=== PATIENT | male | born 1960 | race African-American/Black ===

== ENCOUNTER 2021-05-30 13:42 | Emergency (ER) | payer MEDICAID ==
[~2021-05-30] VITALS: Ht 180.3 cm; Wt 82.0 kg
[~2021-05-30 13:42] MED LIST: ALBU18HF2 IH; ASPI-1497 PO; CARV25TA47 PO; CLON0.2T PO; FURO40TA5 PO; HYDR100T26 PO; INSLAN SUBCUT; LOSA100T32 PO
[2021-05-30 13:51] VITALS: BP 173/95
== END 2021-05-30 15:49 | disposition home or self-care (01) ==
LOC: ER 13:42
DX: S90.32XA Contusion of left foot, initial encounter (principal); Z48.00 Encounter for change or removal of nonsurgical wound dressing; E11.22 Type 2 diabetes mellitus with diabetic chronic kidney disease; I13.2 Hypertensive heart and chronic kidney disease with heart failure and with stage 5 chronic kidney disease, or end stage renal disease; I50.9 Heart failure, unspecified; N18.6 End stage renal disease; F12.10 Cannabis abuse, uncomplicated; Z89.422 Acquired absence of other left toe(s); Z99.2 Dependence on renal dialysis; W17.89XA Other fall from one level to another, initial encounter; Y93.89 Activity, other specified; Y92.488 Other paved roadways as the place of occurrence of the external cause
CPT/HCPCS: 73630; 99283

== ENCOUNTER 2022-05-14 12:46 | Inpatient (IN) | payer MEDICARE, MEDICAID ==
[~2022-05-14] VITALS: Ht 177.8 cm; Wt 90.7 kg
[2022-05-14 13:58] LABS: HEMATOCRIT. 23.8 % (42.0-52.0); HEMOGLOBIN. 7.7 g/dL (14.0-18.0); MEAN CORPUSCULAR VOLUME 86.7 fL (80.0-94.0); MEAN PLATELET VOLUME 10.2 fl (7.4-10.4); PLATELET 232 x1000/uL (130-400); RED BLOOD CELL COUNT 2.75 mill/uL (4.7-6.1); RED CELL DISTRIBUTION WIDTH 17.5 % (11.6-14.6)
[2022-05-14 14:07] LABS: CHLORIDE 92 mEq/L (98-107)
[2022-05-14] MEDS ORDERED: ACETAMINOPHEN 325MG TABLET PO ONE (14:45)
[2022-05-14 14:55] LABS: PLATELET ESTIMATE NORMAL
[2022-05-14] MEDS ORDERED: ACETAMINOPHEN 650MG SUPP PR ONE (15:15)
[2022-05-14] MEDS ORDERED: PIPERACILLIN/TAZ 3.375G PREMIX 50 ML IV NR (15:30)
[2022-05-14] MEDS ORDERED: ASPIRIN 300MG SUPP PR NR (15:30)
[2022-05-14] MEDS ORDERED: VANCOMYCIN 1G PREMIX 200 ML IV NR (15:30)
[2022-05-14 16:57] LABS: HEPATITIS B SURFACE ANTIGEN NEGATIVE
[2022-05-14] MEDS ORDERED: HYDRALAZINE 20MG/ML VIAL IV PRN (18:45)
[2022-05-14] MEDS ORDERED: DEXTROSE 50% WATER 50ML SYRINGE IV PRN (18:45)
[2022-05-14] MEDS ORDERED: HYDROMORPHONE HCL/PF 2MG/ML CPJ IV PRN ×2 (18:45→19:00)
[2022-05-14] MEDS ORDERED: ONDANSETRON HCL 4MG/2ML INJ IV PRN (18:45)
[2022-05-14] MEDS ORDERED: IPRATROPIUM/ALBUTEROL 0.5-3(2.5)MG/3ML NEB HHN PRN (18:45)
[2022-05-14 19:37] LABS: TOTAL IRON BINDING CAPACITY 262 ug/dL (250-450)
[2022-05-14] MEDS ORDERED: NALOXONE HCL 0.4MG/ML VIAL IV PRN (19:45)
[2022-05-14 19:50] LABS: FERRITIN 1537 ng/mL (22-322)
[2022-05-14 20:00] VITALS: BP 144/75
[2022-05-14] MEDS ORDERED: PIPERACILLIN/TAZOBACTAM 3.375 G in DEXTROSE 5% WATER 50 ML IV SCH (21:00)
[2022-05-14] MEDS ORDERED: VANCOMYCIN 750MG PMX (XELLIA) 150 ML IV NR (21:00)
[2022-05-14] MEDS: INSULIN LISPRO 100 UNITS/ML SUBCUT SCH (22:16)
[2022-05-14] MEDS: BLOOD SUGAR DIAGNOSTIC STRIP TEST SCH (22:16)
[2022-05-15] VITALS (15 sets, daily range): BP systolic 122–159; BP diastolic 59–93
[2022-05-15 01:20] LABS: CREATINE KINASE MB FRACTION 4.7 ng/mL (0.5-3.6)
[2022-05-15] MEDS ORDERED: QUET25TA36 PO (05:46)
[2022-05-15] MEDS ORDERED: LEVE500S9 PO (05:46)
[2022-05-15] MEDS ORDERED: AMOX1TAB15 MT (05:46)
[2022-05-15] MEDS ORDERED: PHEN100C12 PO ×2 (05:46→16:27)
[2022-05-15] MEDS ORDERED: METO-539 PO ×2 (05:46→16:24)
[2022-05-15] MEDS ORDERED: CLON0.2T PO (05:46)
[2022-05-15] MEDS ORDERED: SEVE800T25 PO (05:46)
[2022-05-15] MEDS ORDERED: MINO10TA PO (05:46)
[2022-05-15 06:08] LABS: CHLORIDE 94 mEq/L (98-107)
[2022-05-15 06:13] LABS: MEAN CORPUSCULAR HEMOGLOBIN 27.7 pg (28.0-32.0); MEAN CORPUSCULAR VOLUME 86.3 fL (80.0-94.0); PLATELET 191 x1000/uL (130-400); RED BLOOD CELL COUNT 2.35 mill/uL (4.7-6.1)
[2022-05-15 06:22] LABS: HDL CHOLESTEROL 64 mg/dL (40-59); LDL CHOLESTEROL 45 mg/dL (5-100)
[2022-05-15 06:41] LABS: CREATINE KINASE 358 IU/L (39-308); CREATINE KINASE MB FRACTION 4.1 ng/mL (0.5-3.6)
[2022-05-15 06:52] LABS: HEMATOCRIT. 20.2 % (42.0-52.0); HEMOGLOBIN. 6.5 g/dL (14.0-18.0)
[2022-05-15] MEDS: BLOOD SUGAR DIAGNOSTIC STRIP TEST SCH ×4 (07:30→21:00)
[2022-05-15] MEDS: INSULIN LISPRO 100 UNITS/ML SUBCUT SCH ×4 (08:00→21:44)
[2022-05-15 08:38] LABS: PLATELET ESTIMATE NORMAL
[2022-05-15] MEDS: FAMOTIDINE 20MG/2ML VIAL IV SCH (09:22)
[2022-05-15] MEDS: FUROSEMIDE 40MG/4ML VIAL IVP SCH (09:22)
[2022-05-15] MEDS ORDERED: VANCOMYCIN 1GM PMX (XELLIA) 200 ML IV SCH (10:00)
[2022-05-15 12:30] LABS: TOTAL IRON BINDING CAPACITY 190 ug/dL (250-450)
[2022-05-15] MEDS: PIPERACILLIN/TAZOBACTAM 3.375 G in DEXTROSE 5% WATER 50 ML IV SCH ×2 (13:18→21:43)
[2022-05-15 13:25] LABS: CREATINE KINASE MB FRACTION 4.5 ng/mL (0.5-3.6)
[2022-05-15] MEDS ORDERED: ASPI-1160 PO (16:22)
[2022-05-15] MEDS ORDERED: LEVE500T98 PO (16:23)
[2022-05-15] MEDS ORDERED: NIFE90TA43 PO (16:24)
[2022-05-15] MEDS ORDERED: CLOP-31 PO (16:25)
[2022-05-15] MEDS ORDERED: AMLO10TA80 PO (16:25)
[2022-05-15] MEDS ORDERED: ATOR40TA70 PO (16:29)
[2022-05-15 16:48] LABS: HEMATOCRIT 24.9 % (42.0-52.0); HEMOGLOBIN 7.9 g/dL (14.0-18.0); MEAN CORPUSCULAR VOLUME 87.8 fL (80.0-94.0); PLATELET 181 x1000/uL (130-400); RED BLOOD CELL COUNT 2.84 mill/uL (4.7-6.1); RED CELL DISTRIBUTION WIDTH 16.4 % (11.6-14.6)
[2022-05-15] MEDS ORDERED: LEVETIRACETAM 500 MG PO SCH (17:00)
[2022-05-15] MEDS ORDERED: SEVELAMER HCL 800 MG PO SCH (18:00)
[2022-05-15] MEDS: PHENYTOIN SODIUM EXTENDED 100MG CAPSULE PO SCH (18:02)
[2022-05-15] MEDS: CLONIDINE 0.2MG TABLET PO SCH (18:02)
[2022-05-15] MEDS: QUETIAPINE FUMARATE 25MG TABLET PO SCH (18:03)
[2022-05-15] MEDS: LEVETIRACETAM 500MG TABLET PO SCH (18:03)
[2022-05-15] MEDS: METOPROLOL TARTRATE 50MG TABLET PO SCH (18:03)
[2022-05-15] MEDS: SEVELAMER CARBONATE 800 MG TABLET PO SCH (18:04)
[2022-05-15] MEDS: MINOXIDIL 10MG TABLET PO SCH (18:04)
[2022-05-15] MEDS ORDERED: EPOETIN ALFA 4000UNITS/ML VIAL SUBCUT SCH (21:00)
[2022-05-15] MEDS: EPOETIN ALFA-EPBX 4,000 UNIT/ML VIAL SUBCUT SCH (21:43)
[2022-05-15] MEDS: THIAMINE HCL 100MG TABLET PO SCH (21:48)
[2022-05-16] VITALS: BP 98/51
[2022-05-16 06:02] LABS: CHLORIDE 91 mEq/L (98-107)
[2022-05-16 06:14] LABS: HEMATOCRIT. 26.5 % (42.0-52.0); HEMOGLOBIN. 8.3 g/dL (14.0-18.0); MEAN CORPUSCULAR HEMOGLOBIN 27.2 pg (28.0-32.0); MEAN PLATELET VOLUME 10.2 fl (7.4-10.4); PLATELET 266 x1000/uL (130-400); RED BLOOD CELL COUNT 3.05 mill/uL (4.7-6.1); RED CELL DISTRIBUTION WIDTH 16.6 % (11.6-14.6)
[2022-05-16 08:00] VITALS: BP 130/71
[2022-05-16] MEDS: BLOOD SUGAR DIAGNOSTIC STRIP TEST SCH ×4 (08:07→20:55)
[2022-05-16 08:30] LABS: PLATELET ESTIMATE NORMAL
[2022-05-16 08:34] LABS: T4 FREE 1.27 ng/dL (0.76-1.46)
[2022-05-16] MEDS: PHENYTOIN SODIUM EXTENDED 100MG CAPSULE PO SCH ×5 (08:39→16:35)
[2022-05-16] MEDS: FUROSEMIDE 40MG/4ML VIAL IVP SCH (08:39)
[2022-05-16] MEDS: METOPROLOL TARTRATE 50MG TABLET PO SCH ×2 (08:47→16:29)
[2022-05-16] MEDS: FAMOTIDINE 20MG/2ML VIAL IV SCH (08:47)
[2022-05-16] MEDS: LEVETIRACETAM 500MG TABLET PO SCH ×2 (08:47→16:35)
[2022-05-16] MEDS: THIAMINE HCL 100MG TABLET PO SCH (08:47)
[2022-05-16] MEDS: SEVELAMER CARBONATE 800 MG TABLET PO SCH ×3 (08:47→16:35)
[2022-05-16] MEDS: MINOXIDIL 10MG TABLET PO SCH ×2 (08:47→16:26)
[2022-05-16] MEDS: CLONIDINE 0.2MG TABLET PO SCH ×2 (08:48→16:26)
[2022-05-16] MEDS: QUETIAPINE FUMARATE 25MG TABLET PO SCH ×2 (09:09→16:35)
[2022-05-16] MEDS: PIPERACILLIN/TAZOBACTAM 3.375 G in DEXTROSE 5% WATER 50 ML IV SCH ×2 (09:09→20:55)
[2022-05-16] MEDS: INSULIN LISPRO 100 UNITS/ML SUBCUT SCH ×4 (09:17→20:55)
[2022-05-16 10:00] VITALS: BP 125/60
[2022-05-16] MEDS ORDERED: PHENYTOIN SODIUM EXTENDED 100MG CAPSULE PO NR (11:15)
[2022-05-16 12:00] VITALS: BP 138/66
[2022-05-16 16:00] VITALS: BP 106/56
[2022-05-16 20:00] VITALS: BP 97/59
[2022-05-17] VITALS: BP 111/60
[2022-05-17 04:00] VITALS: BP 97/51
[2022-05-17] MEDS: BLOOD SUGAR DIAGNOSTIC STRIP TEST SCH ×4 (06:36→20:48)
[2022-05-17] MEDS: INSULIN LISPRO 100 UNITS/ML SUBCUT SCH ×4 (06:36→20:47)
[2022-05-17 08:00] VITALS: BP 155/63
[2022-05-17] MEDS: QUETIAPINE FUMARATE 25MG TABLET PO SCH ×2 (08:15→17:31)
[2022-05-17] MEDS: THIAMINE HCL 100MG TABLET PO SCH (08:15)
[2022-05-17] MEDS: METOPROLOL TARTRATE 50MG TABLET PO SCH ×2 (08:16→17:00)
[2022-05-17] MEDS: SEVELAMER CARBONATE 800 MG TABLET PO SCH ×3 (08:16→17:31)
[2022-05-17] MEDS: PHENYTOIN SODIUM EXTENDED 100MG CAPSULE PO SCH ×3 (08:16→17:31)
[2022-05-17] MEDS: CLONIDINE 0.2MG TABLET PO SCH ×2 (08:16→17:00)
[2022-05-17] MEDS: LEVETIRACETAM 500MG TABLET PO SCH ×2 (08:16→17:31)
[2022-05-17] MEDS: MINOXIDIL 10MG TABLET PO SCH ×2 (08:16→17:00)
[2022-05-17] MEDS: FAMOTIDINE 20MG TABLET PO SCH (08:16)
[2022-05-17] MEDS: PIPERACILLIN/TAZOBACTAM 3.375 G in DEXTROSE 5% WATER 50 ML IV SCH ×2 (08:17→20:47)
[2022-05-17] MEDS: FUROSEMIDE 40MG/4ML VIAL IVP SCH (08:17)
[2022-05-17 12:00] VITALS: BP 123/58
[2022-05-17 16:00] VITALS: BP 103/55
[2022-05-17 17:00] LABS: BASOPHILS % 0.7 % (0.0-2.0); EOSINOPHILS % 1.6 % (0.0-5.0); HEMATOCRIT. 23.9 % (42.0-52.0); HEMOGLOBIN. 7.8 g/dL (14.0-18.0); LYMPHOCYTES % 7.3 % (20.0-50.0); MEAN CORPUSCULAR HEMOGLOBIN 27.9 pg (28.0-32.0); MEAN CORPUSCULAR VOLUME 85.1 fL (80.0-94.0); MEAN PLATELET VOLUME 9.6 fl (7.4-10.4); MONOCYTES % 13.5 % (2.0-8.0); NEUTROPHILS % 76.9 % (40.0-76.0); PLATELET 269 x1000/uL (130-400); RED BLOOD CELL COUNT 2.81 mill/uL (4.7-6.1); RED CELL DISTRIBUTION WIDTH 17.2 % (11.6-14.6)
[2022-05-17 17:40] LABS: CHLORIDE 94 mEq/L (98-107)
[2022-05-17 20:00] VITALS: BP 122/65
[2022-05-17] MEDS: EPOETIN ALFA-EPBX 4,000 UNIT/ML VIAL SUBCUT SCH (22:11)
[2022-05-18] VITALS: BP 103/61
[2022-05-18 04:00] VITALS: BP 115/56
[2022-05-18] MEDS: BLOOD SUGAR DIAGNOSTIC STRIP TEST SCH ×4 (06:18→21:02)
[2022-05-18] MEDS: INSULIN LISPRO 100 UNITS/ML SUBCUT SCH ×4 (06:18→21:00)
[2022-05-18 07:05] LABS: CHLORIDE 94 mEq/L (98-107)
[2022-05-18 07:07] LABS: BASOPHILS % 0.8 % (0.0-2.0); EOSINOPHILS % 1.8 % (0.0-5.0); HEMATOCRIT. 21.4 % (42.0-52.0); HEMOGLOBIN. 7.1 g/dL (14.0-18.0); LYMPHOCYTES % 7.4 % (20.0-50.0); MEAN CORPUSCULAR HEMOGLOBIN 28.4 pg (28.0-32.0); MEAN CORPUSCULAR VOLUME 85.8 fL (80.0-94.0); MEAN PLATELET VOLUME 9.8 fl (7.4-10.4); MONOCYTES % 13.1 % (2.0-8.0); NEUTROPHILS % 76.9 % (40.0-76.0); PLATELET 231 x1000/uL (130-400); RED BLOOD CELL COUNT 2.49 mill/uL (4.7-6.1); RED CELL DISTRIBUTION WIDTH 16.6 % (11.6-14.6)
[2022-05-18 08:00] VITALS: BP 156/67
[2022-05-18] MEDS: SEVELAMER CARBONATE 800 MG TABLET PO SCH ×3 (08:52→17:41)
[2022-05-18] MEDS: PIPERACILLIN/TAZOBACTAM 3.375 G in DEXTROSE 5% WATER 50 ML IV SCH ×2 (08:52→21:03)
[2022-05-18] MEDS: METOPROLOL TARTRATE 50MG TABLET PO SCH ×2 (08:54→17:42)
[2022-05-18] MEDS: LEVETIRACETAM 500MG TABLET PO SCH ×2 (08:54→17:42)
[2022-05-18] MEDS: CLONIDINE 0.2MG TABLET PO SCH ×2 (08:55→17:42)
[2022-05-18] MEDS: PHENYTOIN SODIUM EXTENDED 100MG CAPSULE PO SCH ×3 (08:55→17:41)
[2022-05-18] MEDS: MINOXIDIL 10MG TABLET PO SCH ×2 (08:55→17:41)
[2022-05-18] MEDS: FAMOTIDINE 20MG TABLET PO SCH (08:55)
[2022-05-18] MEDS: THIAMINE HCL 100MG TABLET PO SCH (08:57)
[2022-05-18] MEDS: QUETIAPINE FUMARATE 25MG TABLET PO SCH ×2 (08:57→17:49)
[2022-05-18] MEDS ORDERED: IOHEXOL-350 100 ML BOTTLE ONE (09:34)
[2022-05-18 12:00] VITALS: BP 118/52
[2022-05-18 16:00] VITALS: BP 127/61
[2022-05-18 20:00] VITALS: BP 127/70
[2022-05-19] VITALS (12 sets, daily range): BP systolic 107–129; BP diastolic 47–71
[2022-05-19] MEDS: BLOOD SUGAR DIAGNOSTIC STRIP TEST SCH ×4 (06:01→21:31)
[2022-05-19] MEDS: INSULIN LISPRO 100 UNITS/ML SUBCUT SCH ×4 (06:36→21:00)
[2022-05-19 07:03] LABS: CHLORIDE 92 mEq/L (98-107)
[2022-05-19 07:06] LABS: BASOPHILS % 0.5 % (0.0-2.0); EOSINOPHILS % 2.6 % (0.0-5.0); HEMATOCRIT. 21.5 % (42.0-52.0); HEMOGLOBIN. 7.2 g/dL (14.0-18.0); MEAN CORPUSCULAR HEMOGLOBIN 28.5 pg (28.0-32.0); MEAN CORPUSCULAR VOLUME 85.6 fL (80.0-94.0); MEAN PLATELET VOLUME 9.5 fl (7.4-10.4); MONOCYTES % 11.3 % (2.0-8.0); NEUTROPHILS % 76.6 % (40.0-76.0); PLATELET 262 x1000/uL (130-400); RED BLOOD CELL COUNT 2.52 mill/uL (4.7-6.1); RED CELL DISTRIBUTION WIDTH 17.2 % (11.6-14.6)
[2022-05-19] MEDS: METOPROLOL TARTRATE 50MG TABLET PO SCH ×2 (08:51→16:32)
[2022-05-19] MEDS: THIAMINE HCL 100MG TABLET PO SCH (08:51)
[2022-05-19] MEDS: PHENYTOIN SODIUM EXTENDED 100MG CAPSULE PO SCH ×3 (08:51→16:32)
[2022-05-19] MEDS: QUETIAPINE FUMARATE 25MG TABLET PO SCH ×2 (08:51→16:32)
[2022-05-19] MEDS: FAMOTIDINE 20MG TABLET PO SCH (08:51)
[2022-05-19] MEDS: SEVELAMER CARBONATE 800 MG TABLET PO SCH ×3 (08:51→16:32)
[2022-05-19] MEDS: LEVETIRACETAM 500MG TABLET PO SCH ×2 (08:52→16:32)
[2022-05-19] MEDS: MINOXIDIL 10MG TABLET PO SCH ×2 (08:52→16:33)
[2022-05-19] MEDS: CLONIDINE 0.2MG TABLET PO SCH ×2 (08:52→16:32)
[2022-05-19] MEDS: PIPERACILLIN/TAZOBACTAM 3.375 G in DEXTROSE 5% WATER 50 ML IV SCH (08:53)
[2022-05-19 12:06] LABS: HEMATOCRIT 22.9 % (42.0-52.0); HEMOGLOBIN 7.6 g/dL (14.0-18.0)
[2022-05-19] MEDS ORDERED: VANCOMYCIN 1GM PMX (XELLIA) 200 ML IV SCH (15:00)
[2022-05-19] MEDS: MEROPENEM 1,000 MG in SODIUM CHLORIDE 0.9% 100 ML IV SCH (18:08)
[2022-05-19] MEDS: ACETAMINOPHEN 325MG TABLET PO PRN (18:09)
[2022-05-20] VITALS: BP 110/66
[2022-05-20 04:00] VITALS: BP 115/68
[2022-05-20] MEDS: BLOOD SUGAR DIAGNOSTIC STRIP TEST SCH ×4 (06:10→21:00)
[2022-05-20] MEDS: INSULIN LISPRO 100 UNITS/ML SUBCUT SCH ×4 (06:10→21:00)
[2022-05-20 07:23] LABS: HEMATOCRIT 26.2 % (42.0-52.0); MEAN CORPUSCULAR HEMOGLOBIN 28.6 pg (28.0-32.0); MEAN CORPUSCULAR VOLUME 85.6 fL (80.0-94.0); PLATELET 280 x1000/uL (130-400); RED BLOOD CELL COUNT 3.06 mill/uL (4.7-6.1); RED CELL DISTRIBUTION WIDTH 17.4 % (11.6-14.6)
[2022-05-20] MEDS ORDERED: LIDOCAINE HCL/PF 2% 20MG/ML 5 ML/VIAL ONE (07:30)
[2022-05-20] MEDS ORDERED: IODIXANOL 320MG/ML 100 ML BOTTLE IV ONE (07:30)
[2022-05-20 07:42] LABS: HEMOGLOBIN 8.8 g/dL (14.0-18.0)
[2022-05-20] MEDS ORDERED: HEPARIN 1000 UNITS/ML 10ML ONE (08:20)
[2022-05-20] MEDS: METOPROLOL TARTRATE 50MG TABLET PO SCH ×2 (11:54→18:44)
[2022-05-20] MEDS: PHENYTOIN SODIUM EXTENDED 100MG CAPSULE PO SCH ×3 (11:54→18:44)
[2022-05-20] MEDS: LEVETIRACETAM 500MG TABLET PO SCH ×2 (11:55→18:44)
[2022-05-20] MEDS: SEVELAMER CARBONATE 800 MG TABLET PO SCH ×3 (11:55→18:43)
[2022-05-20] MEDS: FAMOTIDINE 20MG TABLET PO SCH (11:55)
[2022-05-20] MEDS: THIAMINE HCL 100MG TABLET PO SCH (11:55)
[2022-05-20] MEDS: QUETIAPINE FUMARATE 25MG TABLET PO SCH ×2 (11:56→18:43)
[2022-05-20] MEDS: CLONIDINE 0.2MG TABLET PO SCH ×2 (11:56→18:44)
[2022-05-20] MEDS: MINOXIDIL 10MG TABLET PO SCH ×2 (11:56→18:44)
[2022-05-20 12:00] VITALS: BP 148/79
[2022-05-20 16:00] VITALS: BP 134/72
[2022-05-20] MEDS: MEROPENEM 1,000 MG in SODIUM CHLORIDE 0.9% 100 ML IV SCH (18:45)
[2022-05-20 20:00] VITALS: BP 101/56
[2022-05-21] VITALS: BP 102/56
[2022-05-21] MEDS: EPOETIN ALFA-EPBX 4,000 UNIT/ML VIAL SUBCUT SCH (00:55)
[2022-05-21 04:00] VITALS: BP 124/62
[2022-05-21] MEDS: INSULIN LISPRO 100 UNITS/ML SUBCUT SCH ×4 (06:54→21:00)
[2022-05-21] MEDS: BLOOD SUGAR DIAGNOSTIC STRIP TEST SCH ×4 (06:54→21:15)
[2022-05-21 07:00] LABS: BASOPHILS % 0.7 % (0.0-2.0); EOSINOPHILS % 2.5 % (0.0-5.0); HEMATOCRIT. 27.2 % (42.0-52.0); LYMPHOCYTES % 10.1 % (20.0-50.0); MEAN CORPUSCULAR HEMOGLOBIN 28.7 pg (28.0-32.0); MEAN CORPUSCULAR VOLUME 86.4 fL (80.0-94.0); MEAN PLATELET VOLUME 9.4 fl (7.4-10.4); MONOCYTES % 14.3 % (2.0-8.0); NEUTROPHILS % 72.4 % (40.0-76.0); PLATELET 313 x1000/uL (130-400); RED BLOOD CELL COUNT 3.15 mill/uL (4.7-6.1); RED CELL DISTRIBUTION WIDTH 17.4 % (11.6-14.6)
[2022-05-21 08:00] VITALS: BP 107/52
[2022-05-21] MEDS: FAMOTIDINE 20MG TABLET PO SCH (08:31)
[2022-05-21] MEDS: THIAMINE HCL 100MG TABLET PO SCH (08:31)
[2022-05-21] MEDS: LEVETIRACETAM 500MG TABLET PO SCH ×2 (08:33→17:16)
[2022-05-21] MEDS: PHENYTOIN SODIUM EXTENDED 100MG CAPSULE PO SCH ×2 (08:33→17:16)
[2022-05-21] MEDS: SEVELAMER CARBONATE 800 MG TABLET PO SCH ×3 (08:33→17:16)
[2022-05-21] MEDS: QUETIAPINE FUMARATE 25MG TABLET PO SCH ×2 (08:33→17:16)
[2022-05-21] MEDS: MINOXIDIL 10MG TABLET PO SCH ×2 (08:34→17:00)
[2022-05-21] MEDS: CLONIDINE 0.2MG TABLET PO SCH ×2 (08:34→17:00)
[2022-05-21] MEDS: METOPROLOL TARTRATE 50MG TABLET PO SCH ×2 (08:34→17:00)
[2022-05-21 12:00] VITALS: BP 130/65
[2022-05-21 15:55] VITALS: BP 106/51
[2022-05-21] MEDS ORDERED: VANCOMYCIN 750MG PMX (XELLIA) 150 ML IV SCH (16:00)
[2022-05-21] MEDS: MEROPENEM 1,000 MG in SODIUM CHLORIDE 0.9% 100 ML IV SCH (17:16)
[2022-05-21 20:00] VITALS: BP 131/75
[2022-05-21] MEDS ORDERED: EPOETIN ALFA-EPBX 4,000 UNIT/ML VIAL SUBCUT SCH (21:00)
[2022-05-21] MEDS: ACETAMINOPHEN 325MG TABLET PO PRN (21:53)
[2022-05-22] VITALS: BP 139/71
[2022-05-22 04:00] VITALS: BP 137/65
[2022-05-22 06:42] LABS: BASOPHILS % 0.7 % (0.0-2.0); EOSINOPHILS % 3.1 % (0.0-5.0); HEMATOCRIT. 25.9 % (42.0-52.0); HEMOGLOBIN. 8.6 g/dL (14.0-18.0); LYMPHOCYTES % 9.3 % (20.0-50.0); MEAN CORPUSCULAR HEMOGLOBIN 28.7 pg (28.0-32.0); MEAN CORPUSCULAR VOLUME 86.4 fL (80.0-94.0); MEAN PLATELET VOLUME 8.9 fl (7.4-10.4); NEUTROPHILS % 72.9 % (40.0-76.0); PLATELET 284 x1000/uL (130-400); RED CELL DISTRIBUTION WIDTH 18.3 % (11.6-14.6)
[2022-05-22] MEDS: BLOOD SUGAR DIAGNOSTIC STRIP TEST SCH ×4 (07:10→20:30)
[2022-05-22] MEDS: INSULIN LISPRO 100 UNITS/ML SUBCUT SCH ×4 (07:40→20:30)
[2022-05-22 08:00] VITALS: BP 118/50
[2022-05-22 08:04] LABS: PHOSPHORUS 3.9 mg/dL (2.5-4.9)
[2022-05-22] MEDS: PHENYTOIN SODIUM EXTENDED 100MG CAPSULE PO SCH ×2 (08:25→17:35)
[2022-05-22] MEDS: FAMOTIDINE 20MG TABLET PO SCH (08:26)
[2022-05-22] MEDS: MINOXIDIL 10MG TABLET PO SCH ×2 (08:26→17:35)
[2022-05-22] MEDS: QUETIAPINE FUMARATE 25MG TABLET PO SCH ×2 (08:26→17:35)
[2022-05-22] MEDS: THIAMINE HCL 100MG TABLET PO SCH (08:26)
[2022-05-22] MEDS: LEVETIRACETAM 500MG TABLET PO SCH ×2 (08:26→17:35)
[2022-05-22] MEDS: METOPROLOL TARTRATE 50MG TABLET PO SCH ×2 (08:26→17:36)
[2022-05-22] MEDS: SEVELAMER CARBONATE 800 MG TABLET PO SCH ×3 (08:26→17:34)
[2022-05-22] MEDS: CLONIDINE 0.2MG TABLET PO SCH ×2 (08:27→17:35)
[2022-05-22 12:00] VITALS: BP 141/70
[2022-05-22] MEDS ORDERED: PHENYTOIN SODIUM 100MG/2ML VIAL IV ONE (13:00)
[2022-05-22] MEDS ORDERED: PHENYTOIN SODIUM 1000MG in SODIUM CHLORIDE 0.9% 100ML IV NR (13:00)
[2022-05-22] MEDS ORDERED: VANC1VIA IV (13:32)
[2022-05-22] MEDS ORDERED: MERO1VIA22 IV (13:32)
[2022-05-22 13:58] LABS: HEPATITIS B SURFACE ANTIGEN NEGATIVE
[2022-05-22 16:00] VITALS: BP 153/87
[2022-05-22] MEDS: MEROPENEM 1,000 MG in SODIUM CHLORIDE 0.9% 100 ML IV SCH (17:36)
[2022-05-23] VITALS: BP 102/52
[2022-05-23 04:00] VITALS: BP 115/65
[2022-05-23 06:48] LABS: HEMATOCRIT. 26.2 % (42.0-52.0); HEMOGLOBIN. 8.8 g/dL (14.0-18.0); MEAN CORPUSCULAR HEMOGLOBIN 29.6 pg (28.0-32.0); MEAN CORPUSCULAR VOLUME 87.6 fL (80.0-94.0); MEAN PLATELET VOLUME 8.8 fl (7.4-10.4); PLATELET 284 x1000/uL (130-400); RED BLOOD CELL COUNT 2.98 mill/uL (4.7-6.1); RED CELL DISTRIBUTION WIDTH 18.7 % (11.6-14.6)
[2022-05-23] MEDS: BLOOD SUGAR DIAGNOSTIC STRIP TEST SCH ×3 (07:38→17:10)
[2022-05-23] MEDS: INSULIN LISPRO 100 UNITS/ML SUBCUT SCH ×3 (07:40→17:10)
[2022-05-23 08:00] VITALS: BP 133/79
[2022-05-23 08:22] LABS: PHOSPHORUS 4.1 mg/dL (2.5-4.9)
[2022-05-23] MEDS: SEVELAMER CARBONATE 800 MG TABLET PO SCH ×3 (08:39→16:50)
[2022-05-23] MEDS: PHENYTOIN SODIUM EXTENDED 100MG CAPSULE PO SCH ×2 (08:39→16:49)
[2022-05-23] MEDS: QUETIAPINE FUMARATE 25MG TABLET PO SCH ×2 (08:39→16:50)
[2022-05-23] MEDS: METOPROLOL TARTRATE 50MG TABLET PO SCH ×2 (08:39→16:49)
[2022-05-23] MEDS: FAMOTIDINE 20MG TABLET PO SCH (08:39)
[2022-05-23] MEDS: MINOXIDIL 10MG TABLET PO SCH ×2 (08:40→16:49)
[2022-05-23] MEDS: CLONIDINE 0.2MG TABLET PO SCH ×2 (08:40→16:50)
[2022-05-23] MEDS: THIAMINE HCL 100MG TABLET PO SCH (08:40)
[2022-05-23] MEDS: LEVETIRACETAM 500MG TABLET PO SCH ×2 (08:40→16:49)
[2022-05-23 10:25] LABS: PLATELET ESTIMATE NORMAL
[2022-05-23 12:02] VITALS: BP 122/79
[2022-05-23 15:58] VITALS: BP 133/73
[2022-05-23 16:57] VITALS: BP 133/73
== END 2022-05-23 17:50 | disposition home health service (06) | DRG 853 ==
LOC: ER 12:46 → EDBEDREQSVC 15:26 → MICUSO 17:33 → EDBEDREQTM 17:42 → EDBEDREQ 17:42 → EDBEDREQTM 21:13 → 5EST 05-15 01:33 → 8WST 05-16 13:55
PROVIDERS: ADMIT Hospitalist; ATTEND Hospitalist
PROC: 5A1D70Z Performance of Urinary Filtration, Intermittent, Less than 6 Hours Per Day (ICD-10-PCS; 2022-05-14)
PROC: 30233N1 Transfusion of Nonautologous Red Blood Cells into Peripheral Vein, Percutaneous Approach (ICD-10-PCS; principal; 2022-05-15)
PROC: 5A1D70Z Performance of Urinary Filtration, Intermittent, Less than 6 Hours Per Day (ICD-10-PCS; 2022-05-15)
PROC: 5A1D70Z Performance of Urinary Filtration, Intermittent, Less than 6 Hours Per Day (ICD-10-PCS; 2022-05-17)
PROC: 5A1D70Z Performance of Urinary Filtration, Intermittent, Less than 6 Hours Per Day (ICD-10-PCS; 2022-05-19)
PROC: 047S3ZZ Dilation of Left Posterior Tibial Artery, Percutaneous Approach (ICD-10-PCS; 2022-05-20)
PROC: B41G1ZZ Fluoroscopy of Left Lower Extremity Arteries using Low Osmolar Contrast (ICD-10-PCS; 2022-05-20)
PROC: B41F1ZZ Fluoroscopy of Right Lower Extremity Arteries using Low Osmolar Contrast (ICD-10-PCS; 2022-05-20)
PROC: 4A00X4Z Measurement of Central Nervous Electrical Activity, External Approach (ICD-10-PCS; 2022-05-20)
DX: A41.9 Sepsis, unspecified organism (principal); G93.41 Metabolic encephalopathy; I21.4 Non-ST elevation (NSTEMI) myocardial infarction; N18.6 End stage renal disease; I50.33 Acute on chronic diastolic (congestive) heart failure; I21.A1 Myocardial infarction type 2; E87.1 Hypo-osmolality and hyponatremia; E11.52 Type 2 diabetes mellitus with diabetic peripheral angiopathy with gangrene; I13.2 Hypertensive heart and chronic kidney disease with heart failure and with stage 5 chronic kidney disease, or end stage renal disease; I96 Gangrene, not elsewhere classified; D63.8 Anemia in other chronic diseases classified elsewhere; Z20.822 Contact with and (suspected) exposure to COVID-19; E87.5 Hyperkalemia; E11.22 Type 2 diabetes mellitus with diabetic chronic kidney disease; G40.909 Epilepsy, unspecified, not intractable, without status epilepticus; L97.519 Non-pressure chronic ulcer of other part of right foot with unspecified severity; E11.51 Type 2 diabetes mellitus with diabetic peripheral angiopathy without gangrene; E11.621 Type 2 diabetes mellitus with foot ulcer; L97.529 Non-pressure chronic ulcer of other part of left foot with unspecified severity; Z79.4 Long term (current) use of insulin; Z79.899 Other long term (current) drug therapy; Z99.2 Dependence on renal dialysis; Z86.73 Personal history of transient ischemic attack (TIA), and cerebral infarction without residual deficits; Z91.15 Patient's noncompliance with renal dialysis
CPT/HCPCS: 36415; 37228; 70551; 71045; 73630; 73718; 75635; 75710; 80048; 80053; 80061; 80185; 80202; 82140; 82542; 82550; 82553; 82607; 82728; 82746; 82962; 83036; 83540; 83550; 83605; 83735; 83880; 84100; 84145; 84439; 84443; 84481; 84484; 85014; 85018; 85025; 85027; 85379; 85651; 86705; 86709; 86803; 86850; 86900; 86920; 87340; 87426; 93005; 93923; 93970; 99291; C1725; C1760; C1769; C1893; C1894; C9803; J0885; J1165; J1170; J1644; J1815; J1940; J2185; J2543; J3370; J3490; J7050; J7060; P9016; Q9967

== ENCOUNTER 2023-01-07 17:01 | Inpatient (IN) | payer MEDICARE, MEDICAID ==
[~2023-01-07] VITALS: Ht 177.8 cm; Wt 83.5 kg
[2023-01-07] VITALS (8 sets, daily range): BP systolic 91–132; BP diastolic 69–81
[~2023-01-07 17:01] MED LIST changes: -ALBU18HF2 IH; +AMLO10TA80 PO; +ASPI-1160 PO; -ASPI-1497 PO; +ATOR40TA70 PO; -CARV25TA47 PO; +CLOP-31 PO; -FURO40TA5 PO; -HYDR100T26 PO; -INSLAN SUBCUT; +LEVE500T98 PO; -LOSA100T32 PO; +MERO1VIA22 IV; +METO-539 PO; +MINO10TA PO; +NIFE90TA43 PO; +PHEN100C12 PO; +QUET25TA36 PO; +SEVE800T25 PO; +VANC1VIA IV
[2023-01-07] MEDS ORDERED: SODIUM CHLORIDE 0.9% 1,000 ML IV ONE (17:15)
[2023-01-07] MEDS ORDERED: SODIUM CHLORIDE 0.9% 500 ML IV ONE (17:30)
[2023-01-07] MEDS ORDERED: DILTIAZEM HCL 5MG/ML 5ML VIAL IV ONE (17:30)
[2023-01-07 18:05] LABS: HEMATOCRIT. 33.6 % (42.0-52.0); HEMOGLOBIN. 10.9 g/dL (14.0-18.0); MEAN CORPUSCULAR HEMOGLOBIN 26.7 pg (28.0-32.0); MEAN CORPUSCULAR VOLUME 82.4 fL (80.0-94.0); MEAN PLATELET VOLUME 10.4 fl (7.4-10.4); PLATELET 247 x1000/uL (130-400); RED BLOOD CELL COUNT 4.08 mill/uL (4.7-6.1); RED CELL DISTRIBUTION WIDTH 22.9 % (11.6-14.6)
[2023-01-07 18:17] LABS: CHLORIDE 94 mEq/L (98-107)
[2023-01-07 18:23] LABS: PLATELET ESTIMATE NORMAL
[2023-01-07] MEDS ORDERED: DOCUSATE SODIUM 100MG CAPSULE PO PRN (19:45)
[2023-01-07] MEDS ORDERED: MIDAZOLAM HCL 2 MG/2 ML VIAL IV ONE (19:45)
[2023-01-07] MEDS ORDERED: ONDANSETRON HCL 4MG/2ML INJ IV PRN (19:45)
[2023-01-07] MEDS ORDERED: GUAIFENESIN 200MG/10ML SUGAR FREE UDC PO PRN (19:45)
[2023-01-07] MEDS ORDERED: MAGNESIUM/ALUMINUM HYDROXIDE/SIMETHICONE 30ML UDC PO PRN (19:45)
[2023-01-07] MEDS ORDERED: SODIUM CHLORIDE 0.9% 1,000 ML IV SCH (19:45)
[2023-01-07] MEDS ORDERED: ACETAMINOPHEN 650MG/20.3ML UDC GT PRN (19:45)
[2023-01-07] MEDS ORDERED: LORAZEPAM 0.5MG TABLET PO PRN (19:45)
[2023-01-07] MEDS ORDERED: IPRATROPIUM/ALBUTEROL 0.5-3(2.5)MG/3ML NEB HHN PRN (19:45)
[2023-01-07] MEDS ORDERED: DEXTROSE 50% WATER 50ML SYRINGE IV PRN (20:45)
[2023-01-07] MEDS ORDERED: FUROSEMIDE 40MG/4ML VIAL IVP NR (20:45)
[2023-01-07] MEDS ORDERED: ATORVASTATIN CALCIUM 20MG TABLET PO SCH (21:00)
[2023-01-07] MEDS: BLOOD SUGAR DIAGNOSTIC STRIP TEST SCH (21:17)
[2023-01-07] MEDS: PHENYTOIN SODIUM EXTENDED 100MG CAPSULE PO SCH (21:34)
[2023-01-07] MEDS: LEVETIRACETAM 500MG TABLET PO SCH (21:34)
[2023-01-07] MEDS: QUETIAPINE FUMARATE 25MG TABLET PO SCH (21:34)
[2023-01-07] MEDS: INSULIN LISPRO 100 UNITS/ML SUBCUT SCH (21:35)
[2023-01-07 21:42] LABS: BG BASE EXCESS 6.3 mmol/L (-2.0-2.0); BG CARBOXYHEMOGLOBIN 1.7 % (0.5-1.5); BG DEOXYHEMOGLOBIN 10.6 % (0.0-5.0); BG FRACTION INSPIRED OXYGEN 36; BG HCO3 ACT 29.3 mmol/L (22.0-26.0); BG METHEMOGLOBIN 0.2 % (0.0-1.5); BG OXYGEN SATURATION 89.2 % (92.0-98.5); BG OXYHEMOGLOBIN 87.5 % (94.0-97.0); BG PCO2 36.4 mmHg (35.0-45.0); BG PH 7.524 (7.350-7.450); BG PO2 55.1 mmHg (75.0-100.0); BG SAMPLE SITE RIGHT BRACHIAL; BG TOTAL HEMOGLOBIN 11.9 g/dL (12.0-18.0); BG VENT MODE NASAL CANNULA
[2023-01-07 21:55] LABS: PHOSPHORUS 3.5 mg/dL (2.5-4.9)
[2023-01-07 22:53] LABS: VITAMIN B12 SERUM 1476 pg/mL (211-911)
[2023-01-08] VITALS (34 sets, daily range): BP systolic 103–161; BP diastolic 48–103
[2023-01-08] MEDS ORDERED: FUROSEMIDE 40MG/4ML VIAL IVP NR (01:15)
[2023-01-08 04:31] LABS: HEMOGLOBIN 9.9 g/dL (14.0-18.0); MEAN CORPUSCULAR HEMOGLOBIN 26.9 pg (28.0-32.0); MEAN CORPUSCULAR VOLUME 81.3 fL (80.0-94.0); PLATELET 229 x1000/uL (130-400); RED CELL DISTRIBUTION WIDTH 22.1 % (11.6-14.6)
[2023-01-08 05:00] LABS: CREATINE KINASE MB FRACTION 4.6 ng/mL (0.5-3.6); T4 FREE 1.26 ng/dL (0.76-1.46)
[2023-01-08] MEDS: BLOOD SUGAR DIAGNOSTIC STRIP TEST SCH ×4 (06:29→21:00)
[2023-01-08] MEDS: INSULIN LISPRO 100 UNITS/ML SUBCUT SCH ×3 (06:29→17:00)
[2023-01-08] MEDS ORDERED: CEFTRIAXONE 1GM PREMIX 50 ML IV SCH (06:30)
[2023-01-08] MEDS ORDERED: CEFTRIAXONE 1,000 MG in DEXTROSE 5% WATER 50 ML IV SCH ×2 (06:30→08:00)
[2023-01-08 08:47] LABS: BG BASE EXCESS 4.3 mmol/L (-2.0-2.0); BG CARBOXYHEMOGLOBIN 1.2 % (0.5-1.5); BG DEOXYHEMOGLOBIN 21.2 % (0.0-5.0); BG FRACTION INSPIRED OXYGEN 36; BG HCO3 ACT 28.5 mmol/L (22.0-26.0); BG METHEMOGLOBIN 0.2 % (0.0-1.5); BG OXYGEN SATURATION 78.5 % (92.0-98.5); BG OXYHEMOGLOBIN 77.4 % (94.0-97.0); BG PCO2 41.4 mmHg (35.0-45.0); BG PH 7.456 (7.350-7.450); BG PO2 45.2 mmHg (75.0-100.0); BG SAMPLE SITE RIGHT BRACHIAL; BG TOTAL HEMOGLOBIN 10.8 g/dL (12.0-18.0); BG VENT MODE NASAL CANNULA
[2023-01-08] MEDS: QUETIAPINE FUMARATE 25MG TABLET PO SCH ×2 (08:56→17:39)
[2023-01-08] MEDS: PHENYTOIN SODIUM EXTENDED 100MG CAPSULE PO SCH ×2 (08:56→17:39)
[2023-01-08] MEDS: LEVETIRACETAM 500MG TABLET PO SCH ×2 (08:57→23:17)
[2023-01-08] MEDS ORDERED: CLOPIDOGREL 75MG TABLET PO SCH (09:00)
[2023-01-08] MEDS ORDERED: PANTOPRAZOLE SODIUM 40 MG/VIAL IV SCH (09:00)
[2023-01-08] MEDS ORDERED: ASPIRIN 81MG TABLET PO SCH (09:00)
[2023-01-08] MEDS ORDERED: AZITHROMYCIN 500 MG TABLET PO SCH (09:00)
[2023-01-08] MEDS ORDERED: ENOXAPARIN 30MG/0.3ML SYR SUBCUT SCH (10:00)
[2023-01-08] MEDS ORDERED: AMIODARONE HCL 900 MG in DEXT 5% WATER 482 ML IV SCH (11:30)
[2023-01-08] MEDS ORDERED: AMIODARONE HCL 150 MG in DEXT 5% WATER 100 ML IV NR (11:30)
[2023-01-08 13:35] LABS: INR 1.3; PROTHROMBIN TIME 13.3 sec (9.6-11.0)
[2023-01-08] MEDS ORDERED: VANCOMYCIN 1.5 GM in DEXT 5% WATER 250 ML IV NR (14:00)
[2023-01-08 15:53] LABS: HEPATITIS B SURFACE ANTIGEN NEGATIVE
[2023-01-08] MEDS: PIPERACILLIN/TAZOBACTAM 3.375 G in DEXTROSE 5% WATER 50 ML IV SCH (16:06)
[2023-01-08] MEDS ORDERED: ATORVASTATIN CALCIUM 40MG TABLET PO SCH (21:00)
[2023-01-08] MEDS ORDERED: DILTIAZEM HCL 5MG/ML 5ML VIAL IV NR (22:30)
[2023-01-08] MEDS ORDERED: DILTIAZEM HCL 125 MG in DEXT 5% WATER 100 ML IV PRN (22:30)
[2023-01-09 00:23] VITALS: BP 179/96
[2023-01-09] MEDS: PIPERACILLIN/TAZOBACTAM 3.375 G in DEXTROSE 5% WATER 50 ML IV SCH (00:27)
[2023-01-09] MEDS: INSULIN LISPRO 100 UNITS/ML SUBCUT SCH (00:50)
[2023-01-09 01:24] VITALS: BP 148/68
[2023-01-09 02:21] VITALS: BP 152/92
[2023-01-09 03:24] VITALS: BP 111/51
[2023-01-09 05:19] VITALS: BP 151/128
[2023-01-09 06:31] VITALS: BP 71/43
[2023-01-09] MEDS ORDERED: NOREPINEPHRINE 32 MG in DEXT 5% WATER 218 ML IV PRN (06:45)
== END 2023-01-09 08:00 ==
LOC: ER 17:01 → MICUSO 20:10 → 5EST 01-08 12:45
PROVIDERS: ADMIT Hospitalist; ATTEND Hospitalist
PROC: 5A12012 Performance of Cardiac Output, Single, Manual (ICD-10-PCS; principal; 2023-01-07)
PROC: 0BH17EZ Insertion of Endotracheal Airway into Trachea, Via Natural or Artificial Opening (ICD-10-PCS; 2023-01-09)
PROC: 02HV33Z Insertion of Infusion Device into Superior Vena Cava, Percutaneous Approach (ICD-10-PCS; 2023-01-09)
PROC: B548ZZA Ultrasonography of Superior Vena Cava, Guidance (ICD-10-PCS; 2023-01-09)
DX: I13.2 Hypertensive heart and chronic kidney disease with heart failure and with stage 5 chronic kidney disease, or end stage renal disease (principal); I21.A1 Myocardial infarction type 2; I50.33 Acute on chronic diastolic (congestive) heart failure; J18.9 Pneumonia, unspecified organism; J96.01 Acute respiratory failure with hypoxia; N18.6 End stage renal disease; N17.9 Acute kidney failure, unspecified; E87.1 Hypo-osmolality and hyponatremia; E44.0 Moderate protein-calorie malnutrition; I48.20 Chronic atrial fibrillation, unspecified; E87.4 Mixed disorder of acid-base balance; R18.8 Other ascites; J98.19 Other pulmonary collapse; I48.92 Unspecified atrial flutter; I47.1 Supraventricular tachycardia; N25.81 Secondary hyperparathyroidism of renal origin; I31.39 Other pericardial effusion (noninflammatory); E78.5 Hyperlipidemia, unspecified; D64.9 Anemia, unspecified; E11.22 Type 2 diabetes mellitus with diabetic chronic kidney disease; I95.3 Hypotension of hemodialysis; E87.5 Hyperkalemia; K74.60 Unspecified cirrhosis of liver; J44.9 Chronic obstructive pulmonary disease, unspecified; I27.20 Pulmonary hypertension, unspecified; I07.1 Rheumatic tricuspid insufficiency; D63.8 Anemia in other chronic diseases classified elsewhere; E11.51 Type 2 diabetes mellitus with diabetic peripheral angiopathy without gangrene; G40.909 Epilepsy, unspecified, not intractable, without status epilepticus; Z99.2 Dependence on renal dialysis; Z20.822 Contact with and (suspected) exposure to COVID-19; E88.09 Other disorders of plasma-protein metabolism, not elsewhere classified; N28.1 Cyst of kidney, acquired; I49.3 Ventricular premature depolarization; I25.10 Atherosclerotic heart disease of native coronary artery without angina pectoris; F17.210 Nicotine dependence, cigarettes, uncomplicated; E83.39 Other disorders of phosphorus metabolism; Z68.26 Body mass index [BMI] 26.0-26.9, adult; Z79.01 Long term (current) use of anticoagulants; Z89.511 Acquired absence of right leg below knee; Z86.73 Personal history of transient ischemic attack (TIA), and cerebral infarction without residual deficits; Z79.899 Other long term (current) drug therapy; Z79.82 Long term (current) use of aspirin; Z79.02 Long term (current) use of antithrombotics/antiplatelets; Z79.4 Long term (current) use of insulin
CPT/HCPCS: 36415; 36600; 71045; 71250; 76604; 76700; 78580; 80048; 80053; 80061; 80185; 82306; 82375; 82542; 82550; 82553; 82607; 82728; 82746; 82805; 82962; 83036; 83540; 83550; 83605; 83735; 83880; 84100; 84145; 84439; 84443; 84484; 85025; 85027; 86705; 86709; 86803; 87340; 87426; 92950; 93005; 93306; 93970; 94640; 99291; C1893; C9113; J0282; J0696; J1815; J1940; J2250; J2543; J3370; J3490; J7030; J7040; J7060; A4315